=== PATIENT | female | born 1980 | race American Indian/Alaskan Native ===

== ENCOUNTER 2017-08-18 18:58 | Emergency (ER) | payer MEDICAID ==
[2017-08-18] MEDS ORDERED: Ondansetron 4 MG Tab.DIS PO ONE (18:59)
[2017-08-18 19:14] VITALS: BP 158/102
[2017-08-18] MEDS ORDERED: Ondansetron 4 MG/2 ML SDV IV ONE (19:23)
[2017-08-18] MEDS ORDERED: Sodium Chloride 0.9% 1,000 ML IV ONE (19:23)
--- NOTE | 2017-08-18 19:29 | EDM.PDOC ---
ED HPI GENERAL MEDICAL PROBLEM - General Chief Complaint: Gastrointestinal Problem Stated Complaint: HERNIA SURGERY YESTER,THROWING UP, FEVER [id number] Time Seen by Provider: 08/18/17 19:20 Source of Information: Reports: Patient History Limitations: Reports: No Limitations - History of Present Illness INITIAL COMMENTS - FREE TEXT/NARRATIVE: This 37 yo female patient reports to the ED with nausea/vomiting, a cough and fever that started last night. The patient reports she had an umbilical hernia repair on 08/16/17 and also has diffuse abdominal pain. The patient reports she took her prescribed pain medications yesterday, but has not taken anything today due to frequent vomiting. The patient reports she has not had a bowel movement since surgery, but has not had any difficulties passing urine. The patient reports she was sleeping most of the day today. 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: Denies: Acetaminophen, NSAIDS, Other Medication(s) Generalized Pain Score (Numeric/FACES): 9 - Related Data Allergies Allergy/AdvReac Type Severity Reaction Status Date / Time No Known Allergies Allergy Verified 10/30/15 22:01 Home Meds: Home Meds Acetaminophen 2 tab PO Q6H PRN 06/02/14 [History] Past Medical History - Past Health History Medical/Surgical History: Denies Medical/Surgical History HEENT History: Reports: Impaired Vision Hematologic History: Reports: Blood Transfusion(s) - Past Surgical History GI Surgical History: Reports: Hernia Repair/Other Social & Family History - Family History Family Medical History: Noncontributory - Tobacco Use Smoking Status *Q: Light Tobacco Smoker Years of Tobacco use: 2 Packs/Tins Daily: 0.2 Used Tobacco, but Quit: Yes Month Tobacco Last Used: september Second Hand Smoke Exposure: Yes - Caffeine Use Caffeine Use: Reports: Soda - Alcohol Use Days Per Week of Alcohol Use: 0 - Recreational Drug Use Recreational Drug Use: No ED ROS GENERAL - Review of Systems Review Of Systems: ROS reveals no pertinent complaints other than HPI. ED EXAM, GI/ABD - Physical Exam Exam: See Below Exam Limited By: No Limitations General Appearance: Alert, WD/WN, Moderate Distress Eyes: Bilateral: Normal Appearance, EOMI Ears: Normal External Exam, Normal Canal, Hearing Grossly Normal, Normal TMs Nose: Normal Inspection, Normal Mucosa, No Blood Throat/Mouth: Normal Inspection, Normal Lips, Normal Teeth, Normal Gums, Normal Oropharynx, Normal Voice, No Airway Compromise Head: Atraumatic, Normocephalic Neck: Normal Inspection, Supple, Non-Tender, Full Range of Motion Respiratory/Chest: Decreased Breath Sounds (due to lack of effort (pain related) ), Rhonchi (diffuse) Cardiovascular: Normal Peripheral Pulses, Regular Rate, Rhythm, No Edema, No Gallop, No JVD, No Murmur, No Rub GI/Abdominal Exam: Normal Bowel Sounds, No Organomegaly, No Distention, No Abnormal Bruit, No Mass, Pelvis Stable, Tender (lower abdomen) (Female) Exam: Deferred Rectal (Female) Exam: Deferred Back Exam: Normal Inspection, Full Range of Motion, NT Extremities: Normal Inspection, Normal Range of Motion, Non-Tender, Normal Capillary Refill, No Pedal Edema Neurological: Alert, Oriented, CN II-XII Intact, Normal Cognition, Normal Gait, Normal Reflexes, No Motor/Sensory Deficits Psychiatric: Depressed Mood, Flat Affect Skin Exam: Warm, Dry, Normal Color, No Rash, Increased Warmth Lymphatic: No Adenopathy Course - Vital Signs Last Recorded V/S: Last Vital Signs Temp 37.1 C 08/18/17 19:13 Pulse 111 H 08/18/17 19:13 Resp 22 H 08/18/17 19:13 BP 158/102 H 08/18/17 19:13 Pulse Ox 95 08/18/17 19:13 - Orders/Labs/Meds Orders: Active Orders 24 hr Category Date Time Status CULTURE BLOOD [BC] Stat Lab 08/18/17 19:30 Received Labs: Laboratory Tests 08/18/17 08/18/17 08/18/17 Range/Units 19:30 19:30 19:30 WBC 7.3 (5.0-10.0) 10^3/uL RBC 4.60 (4.2-5.4) 10^6/uL Hgb 13.0 (12.0-16.0) g/dL Hct 37.8 (37.0-47.0) % MCV 82.2 D (80-100) fL MCH 28.3 (27.0-34.0) pg MCHC 34.4 (33.0-35.0) g/dL Plt Count 267 (150-450) 10^3/uL Neut % (Auto) 79.9 H (42.2-75.2) % Lymph % (Auto) 5.4 L (20.5-50.1) % Johnston % (Auto) 14.0 H (2-8) % Eos % (Auto) 0.4 L (1.0-3.0) % Baso % (Auto) 0.3 (0.0-1.0) % Sodium 125 L D (135-145) mmol/L Potassium 3.6 (3.6-5.0) mmol/L Chloride 96 L (101-111) mmol/L Carbon Dioxide 24.0 (21.0-31.0) mmol/L Anion Gap 8.6 BUN 9 (7-18) mg/dL Creatinine 0.5 L (0.6-1.3) mg/dL Est Cr Clr Drug Dosing 120.66 mL/min Estimated GFR (MDRD) > 60 BUN/Creatinine Ratio 18.00 Glucose 100 (74-105) mg/dL Lactic Acid 0.8 (0.5-2.2) mmol/L Calcium 8.3 L (8.4-10.2) mg/dl Total Bilirubin 0.7 (0.2-1.0) mg/dL AST 21 (10-42) IU/L ALT 21 (10-60) IU/L Alkaline Phosphatase 44 (42-121) IU/L Total Protein 7.2 (6.7-8.2) g/dl Albumin 3.7 (3.2-5.5) g/dl Globulin 3.5 Albumin/Globulin Ratio 1.06 Meds: Medications Discontinued Medications Generic Name Dose Route Start Last Admin Trade Name Freq PRN Reason Stop Dose Admin Sodium Chloride 1,000 mls @ 999 mls/hr 08/18/17 19:23 08/18/17 19:29 Normal Saline IV 08/18/17 20:23 999 mls/hr .BOLUS ONE Administration Ondansetron HCl 4 mg 08/18/17 19:23 08/18/17 19:35 Zofran IV 08/18/17 19:24 4 mg ONETIME ONE Administration Oseltamivir Phosphate 75 mg 08/18/17 20:38 Tamiflu PO 08/18/17 20:39 ONETIME ONE Departure - Departure Time of Disposition: 20:41 Disposition: Home, Self-Care 01 Condition: Fair Clinical Impression: Influenza A, Vomiting - Discharge Information Instructions: Influenza, Adult, [id number], Nausea, Adult Forms: ED Department Discharge Care Plan Goals: The patient and family were advised of the examination results during the visit. The patient was given IV fluids, IV Zofran and an oral dose of Tamiflu while in the ED. The patient was discharged with Zofran ODT (4 mg) #4 to take 1 by mouth every 6 hours. The patient was also discharged with a script for Tamiflu (75 mg) #9 to take 1 by mouth 2 times per day and Zofran (4 mg) #20 to take 1 by mouth every 6 hours as needed for nausea. The patient should stick to a BRAT diet (bananas, rice, applesauce and toast) with small frequent sips of fluid over the next 48 hours. If the patient has any additional symptoms or concerns, the patient should follow-up with her primary care facility or return to the emergency department. - My Orders Last 24 Hours: My Active Orders 08/18/17 19:30 CULTURE BLOOD [BC] Stat - Assessment/Plan Last 24 Hours: My Active Orders 08/18/17 19:30 CULTURE BLOOD [BC] Stat
[2017-08-18 20:01] LABS: ANION GAP 8.6; CHLORIDE,CL 96 mmol/L (101-111); SODIUM,NA 125 mmol/L (135-145)
[2017-08-18] MEDS ORDERED: Oseltamivir 75 MG Cap PO ONE (20:38)
[2017-08-18] MEDS ORDERED: Ondansetron 4 MG Tab.DIS ONE (20:50)
== END 2017-08-18 21:02 | disposition home or self-care (01) ==
LOC: DL.ED 18:58
DX: J10.1 Influenza due to other identified influenza virus with other respiratory manifestations (principal); F17.210 Nicotine dependence, cigarettes, uncomplicated
CPT/HCPCS: 36415; 71046; 80053; 83605; 85025; 87040; 87804; 96361; 96374; 99283; A9270; J2405; J7030

== ENCOUNTER 2017-09-24 21:57 | Emergency (ER) | payer MEDICAID ==
[2017-09-24 22:16] VITALS: BP 123/82
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
== END 2017-09-24 23:44 | disposition home or self-care (01) ==
LOC: DL.ED 21:57
DX: S50.12XA Contusion of left forearm, initial encounter (principal); F17.210 Nicotine dependence, cigarettes, uncomplicated; Y04.2XXA Assault by strike against or bumped into by another person, initial encounter
CPT/HCPCS: 73090-LT; 99283

== ENCOUNTER 2024-04-06 20:05 | Emergency (ER) | payer MEDICAID ==
[2024-04-06 20:26] VITALS: BP 173/111; PULSE 94
[2024-04-06] MEDS: Iopamidol 612 MG/ML 100 ML Bottle IVPUSH ONE (20:31)
[2024-04-06] MEDS: HYDROmorphone 1 MG/ML Syringe IM ONE (22:25)
[2024-04-06] MEDS: Ketorolac 30 MG/ML SDV IVPUSH ONE (22:43)
[2024-04-06] MEDS: Take Home: Cyclobenzaprine 10 MG Tab, 4 Tab Pack PO ONE (23:07)
[2024-04-06] MEDS: Take Home: Acetaminophen/HYDROcodone 325-5 MG, 5 Tab Pack PO ONE (23:07)
== END 2024-04-06 23:14 | disposition home or self-care (01) ==
LOC: DL.ED 20:05
DX: S80.12XA Contusion of left lower leg, initial encounter (principal); M54.50 Low back pain, unspecified; M25.552 Pain in left hip; M79.662 Pain in left lower leg; V80.010A Animal-rider injured by fall from or being thrown from horse in noncollision accident, initial encounter; Y93.52 Activity, horseback riding
CPT/HCPCS: 72131; 73590-LT; 74177; 96372; 96374; 99283-25; 99284; A9270-GY; J1170; J1885; Q9967